=== PATIENT | male | born 1975 | race African-American/Black ===

== ENCOUNTER 2017-03-01 17:28 | Observation (INO) | payer SELFPAY ==
[2017-03-01] MEDS ORDERED: ASPIRIN 81 MG TABLET, CHEWABLE PO ONE ×2 (17:53→20:30)
--- NOTE | 2017-03-01 17:57 | ER Document Report ---
ED Medical Screen (RME) - General Chief Complaint: Chest Pain Stated Complaint: CHEST PAIN Time Seen by Provider: 03/01/17 17:53 Notes: Patient presents with left-sided chest pain that is been constant since awakening this morning. He has had some shortness of breath, some nausea and some sweating with the pain. He states he had a stress test one year ago that was normal. He has no other significant cardiac history. He does not take an aspirin a day. No history of DVTs or pulmonary embolisms. No cough cold or congestion. TRAVEL OUTSIDE OF THE [place] IN LAST 30 DAYS: No - Related Data Allergies/Adverse Reactions: No Known Allergies Allergy (Verified 03/01/17 17:49) Home Medications: Current Home Medications No Home Medications 03/01/17 [History] Past Medical History - Social History Frequency of alcohol use: Occasional Drug Abuse: None Renal/ Medical History: Denies: Hx Peritoneal Dialysis Physical Exam - Vital signs Vitals: Temp Pulse Resp Pulse Ox 99.7 F 87 18 98 03/01/17 17:38 03/01/17 17:38 03/01/17 17:38 03/01/17 17:38 Course - Vital Signs Vital signs: Temp Pulse Resp BP Pulse Ox 99.7 F 84 18 205/123 H 98 03/01/17 17:40 03/01/17 17:40 03/01/17 17:40 03/01/17 17:40 03/01/17 17:40
[2017-03-01 18:17] LABS: ABSOLUTE BASOPHILS # (AUTO) 0.1 10^3/uL (0.0-0.2); ABSOLUTE EOSINOPHILS # (AUTO) 0.6 10^3/uL (0.0-0.6); ABSOLUTE LYMPHOCYTES (AUTO) 2.3 10^3/uL (0.5-4.7); ABSOLUTE MONOCYTES (AUTO) 0.5 10^3/uL (0.1-1.4); BASOPHILS % (AUTO) 1.2 % (0-2); EOSINOPHILS % (AUTO) 7.1 % (0-6); HEMATOCRIT 42.6 % (37.9-51.0); HEMOGLOBIN 14.6 g/dL (13.5-17.0); HGB HCT DIFFERENCE 1.2; LYMPHOCYTES % (AUTO) 27.3 % (13-45); MEAN CORPUSCULAR HEMOGLOBIN 28.2 pg (27.0-33.4); MEAN CORPUSCULAR HGB CONC 34.3 g/dL (32.0-36.0); MEAN CORPUSCULAR VOLUME 82 fl (80-97); MONOCYTES % (AUTO) 5.9 % (3-13); RED BLOOD COUNT 5.17 10^6/uL (4.35-5.55); RED CELL DISTRIBUTION WIDTH 14.4 % (11.5-14.0); SEGMENTED NEUTROPHILS % (AUTO) 58.5 % (42-78); WHITE BLOOD COUNT 8.6 10^3/uL (4.0-10.5)
[2017-03-01 18:37] LABS: APPEARANCE,URINE CLEAR; BILIRUBIN,URINE NEGATIVE (NEGATIVE); GLUCOSE, URINE NEGATIVE (NEGATIVE); KETONES,URINE NEGATIVE (NEGATIVE); LEUKOCYTE ESTERASE,URINE NEGATIVE (NEGATIVE); NITRITE,URINE NEGATIVE (NEGATIVE); PROTEIN,URINE 30 mg/dL (NEGATIVE); URINE SPECIFIC GRAVITY 1.012; UROBILINOGEN,URINE NEGATIVE mg/dL (<2.0)
[2017-03-01 18:38] LABS: ALANINE AMINOTRANSFERASE 69 U/L (21-72); ALBUMIN 4.5 g/dL (3.5-5.0); ALKALINE PHOSPHATASE 127 U/L (38-126); ANION GAP 13 (5-19); ASPARTATE AMINO TRANSFERASE 40 U/L (17-59); BILIRUBIN,DIRECT 0.3 mg/dL (0.0-0.4); BILIRUBIN,TOTAL 0.5 mg/dL (0.2-1.3); BLOOD UREA NITROGEN 13 mg/dL (7-20); CALCIUM 9.6 mg/dL (8.4-10.2); CARBON DIOXIDE 23 mmol/L (22-30); CHLORIDE 103 mmol/L (98-107); CREATININE RESULT 0.88 mg/dL (0.52-1.25); GLUCOSE 143 mg/dL (75-110); POTASSIUM 4.1 mmol/L (3.6-5.0); SODIUM 138.8 mmol/L (137-145); TOTAL PROTEIN 7.7 g/dL (6.3-8.2)
[2017-03-01 18:48] LABS: URINE BARBITURATES SCREEN NEGATIVE; URINE METHADONE SCREEN NEGATIVE; URINE OPIATES LOW NEGATIVE; URINE PHENCYCLIDINE SCREEN NEGATIVE
--- NOTE | 2017-03-01 19:48 | RADIOLOGY REPORT (SQ) ---
EXAM DESCRIPTION: CHEST PA/LAT COMPLETED DATE/TIME: 03/01/2017 7:38 pm REASON FOR STUDY: cp COMPARISON: None. EXAM PARAMETERS: NUMBER OF VIEWS: two views TECHNIQUE: Digital Frontal and Lateral radiographic views of the chest acquired. RADIATION DOSE: NA LIMITATIONS: none FINDINGS: LUNGS AND PLEURA: No opacities, masses or pneumothorax. No pleural effusion. MEDIASTINUM AND HILAR STRUCTURES: No masses or contour abnormalities. HEART AND VASCULAR STRUCTURES: Heart normal size. No evidence for failure. BONES: No acute findings. HARDWARE: None in the chest. OTHER: No other significant finding. IMPRESSION: NO SIGNIFICANT RADIOGRAPHIC FINDING IN THE CHEST. TECHNICAL DOCUMENTATION: JOB ID: [id number] [employer]- All Rights Reserved
[2017-03-01] MEDS ORDERED: LISINOPRIL 10 MG TABLET PO ONE (20:29)
[2017-03-01] MEDS ORDERED: AMLODIPINE BESYLATE 5 MG TABLET PO ONE (20:29)
--- NOTE | 2017-03-01 20:34 | ER Document Report ---
ED Cardiac - General Chief Complaint: Chest Pain Stated Complaint: CHEST PAIN Time Seen by Provider: 03/01/17 17:53 Notes: Patient is a 41-year-old male who comes emergency department for chief complaint of chest pain, symptoms started this morning shortly after he got up, he states pain is intermittent, is over the left side of his chest. He states intermittently he has been short of breath and breaking out into a sweat. Patient states she has a history of high blood pressure, is supposed to lisinopril 20 mg and Norvasc 5 mg but he has been out for a month and has no primary care provider. He states he smokes marijuana occasionally, denies any other drugs. He denies personal or family history of cardiac disease, he had a negative stress test about 1 year ago, he denies tobacco, he denies any other medical history. He denies recent surgery or travel. He denies lower extremity swelling or current shortness of breath. He denies current chest pain. TRAVEL OUTSIDE OF THE [place] IN LAST 30 DAYS: No - Related Data Allergies/Adverse Reactions: No Known Allergies Allergy (Verified 03/01/17 17:49) Home Medications: Current Home Medications No Home Medications 03/01/17 [History] Past Medical History - General Information source: Patient - Social History Smoking Status: Never Smoker Frequency of alcohol use: Occasional Drug Abuse: Cocaine, Marijuana Lives with: Family Family History: Reviewed & Not Pertinent Patient has suicidal ideation: No Patient has homicidal ideation: No - Past Medical History Cardiac Medical History: Reports: Hx Hypertension Renal/ Medical History: Denies: Hx Peritoneal Dialysis Surgical Hx: Negative Review of Systems - Review of Systems Constitutional: No symptoms reported EENT: No symptoms reported Cardiovascular: See HPI Respiratory: See HPI Gastrointestinal: No symptoms reported Genitourinary: No symptoms reported Male Genitourinary: No symptoms reported Musculoskeletal: No symptoms reported Skin: No symptoms reported Hematologic/Lymphatic: No symptoms reported Neurological/Psychological: No symptoms reported Physical Exam - Vital signs Vitals: Temp Pulse Resp Pulse Ox 99.7 F 87 18 98 03/01/17 17:38 03/01/17 17:38 03/01/17 17:38 03/01/17 17:38 Interpretation: Normal - General General appearance: Appears well, Alert In distress: None - HEENT Head: Normocephalic, Atraumatic Eyes: Normal Conjunctiva: Normal Extraocular movements intact: Yes Eyelashes: Normal Pupils: PERRL - Respiratory Respiratory status: No respiratory distress Chest status: Nontender Breath sounds: Normal Chest palpation: Normal - Cardiovascular Rhythm: Regular Heart sounds: Normal auscultation Murmur: No - Abdominal Inspection: Normal Distension: No distension Bowel sounds: Normal Tenderness: Nontender Organomegaly: No organomegaly - Back Back: Normal, Nontender - Extremities General upper extremity: Normal inspection, Nontender, Normal color, Normal ROM , Normal temperature General lower extremity: Normal inspection, Nontender, Normal color, Normal ROM , Normal temperature, Normal weight bearing. No: Stephen's sign - Neurological Neuro grossly intact: Yes Cognition: Normal Orientation: AAOx4 Belkis Coma Scale Eye Opening: Spontaneous Belkis Coma Scale Verbal: Oriented Belkis Coma Scale Motor: Obeys Commands Belkis Coma Scale Total: 15 Speech: Normal Motor strength normal: LUE, RUE, LLE, RLE Sensory: Normal - Psychological Associated symptoms: Normal affect, Normal mood - Skin Skin Temperature: Warm Skin Moisture: Dry Skin Color: Normal Course - Re-evaluation Re-evalutation: Patient noted to be very hypertensive. He does not currently have chest pain, chest pain has been intermittent today. EKG with no ST segment changes or T- wave inversions in consecutive leads. Initial troponin indeterminate at 0.02, most likely from elevated blood pressure. Patient denying any recreational drugs. Patient was given home medications because of lack of chest pain. Drug screen shows cocaine. Patient admits to it when confronted with this, but states it was "about 5 days ago". He will not make eye contact when discussing this. Troponin cycled, shows little to no change. No significant elevation. Consulted with Dr. Zuniga, concern because of patient's hypertension, cocaine use , concerning symptoms. She recommends that despite patient being asymptomatic at this time he should still have an evaluation to rule out dissection. Recommend CT of the chest, abdomen/pelvis. Recommends admission to telemetry. CAT scan performed, shows incidental finding of pulmonary nodules, no dissection or acute abnormality. I did discuss this with patient and significant other in detail, I provided a report and gave it to his . Discussed with patient, he agrees with admission recommendation. Called Dr. Goodrich, he is busy with other patients. 03/02/17 Third troponin was obtained, shows some elevation but no concerning elevations. Consistent with cocaine and elevated blood pressure. Blood pressure has actually normalized now. Patient remains chest pain-free. 03/02/17 05:[address] Goodrich, will admit to telemetry observation. - Vital Signs Vital signs: Temp Pulse Resp BP Pulse Ox 98.5 F 84 23 H 140/89 H 93 03/02/17 01:47 03/01/17 17:40 03/02/17 05:31 03/02/17 05:31 03/02/17 05:31 - Laboratory Result Diagrams: 03/01/17 18:00 03/01/17 18:00 Laboratory results interpreted by me: 03/01/17 03/01/17 03/01/17 18:00 18:00 18:00 RDW 14.4 H Eosinophils % 7.1 H Glucose 143 H Alkaline Phosphatase 127 H Urine Protein 30 H Discharge - Discharge Clinical Impression: Uncontrolled hypertension, Cocaine abuse Chest pain Qualifiers: Chest pain type: unspecified Qualified Code(s): R07.9 - Chest pain, unspecified Admitting Provider: Hospitalist Unit Admitted: [facility]
--- NOTE | 2017-03-02 01:18 | RADIOLOGY REPORT (SQ) ---
EXAM DESCRIPTION: CTA CHEST COMPLETED DATE/TIME: 03/02/2017 12:13 am REASON FOR STUDY: chest pain, hypertension, eval aorta COMPARISON: None. TECHNIQUE: CT scan of the chest performed using helical scanning technique with dynamic intravenous contrast injection. Images reviewed with lung, soft tissue and bone windows. Reconstructed coronal and sagittal MPR images reviewed. Additional 3 dimensional post-processing performed to develop Maximal Intensity Projection images (SC P). All images stored on PACS. All CT scanners at this facility use dose modulation, iterative reconstruction, and/or weight based d osing when appropriate to reduce radiation dose to as low as reasonably achievable (ALARA). [facility]: Dose Right [facility]: CareDose [facility]: Dose Right [facility]: Teradose 4D [facility]: eSight CONTRAST TYPE AND DOSE: contrast/concentration: Isovue 370.00 mg/ml; Total Contrast Delivered: 100.0 ml; Total Saline Delivered: 58.0 ml RENAL FUNCTION: Creatinine 0.8. RADIATION DOSE: 1771 LIMITATIONS: None. FINDINGS: LUNGS AND PLEURA: 1.0 cm right upper lobar pulmonary nodule and 1.0 cm right middle lobar pulmonary nodule each with minimal spiculation. AORTA AND GREAT VESSELS: No aneurysm or dissection. Normal CTA of the aorta. HEART: No pericardial effusion. PULMONARY ARTERIES: No gross evidence of pulmonary emboli ; pulmonary arteries are not significantly enhanced limiting sensitivity. HILAR AND MEDIASTINAL STRUCTURES: Moderate mediastinal and right hilar lymphadenopathy includes a 2.5 x 1.0 cm left paracentral superior mediastinal lymph node, image 40 of series 3. HARDWARE: None in the chest. UPPER ABDOMEN: See separate report of the CT of the abdomen. THYROID AND OTHER SOFT TISSUES: No masses. No adenopathy. BONES: No acute or significant finding. 3D MIPS: Confirm above findings. OTHER: No other significant finding. IMPRESSION: 1. Two , 1.0 cm mildly spiculated right-sided pulmonary nodules and moderate mediastina l and right hilar lymphadenopathy. Infectious, inflammatory, and neoplastic processes are in the dif ferential diagnosis. Cannot exclude malignancy. CT surveillance recommended in 3 months or sooner a s clinically warranted. 2. Normal CTA appearance of the thoracic aorta. COMMENT: FLEISCHNER CRITERIA FOR FOLLOW-UP OF PULMONARY NODULES Incidentally detected new nodules in persons 35 or older. HIGH RISK: History of smoking or other known risk factors. >8mm multiple solid nodules: LOW RISK: CT 3-6 mo; then consider CT 18-24 mo. HIGH RISK: CT 3-6 mo; th en CT 18-24 mo. TECHNICAL DOCUMENTATION: JOB ID: [id number] Quality ID # [id number]: Final reports with documentation of one or more dose reduction techniques (e.g., Au tomated exposure control, adjustment of the mA and/or kV according to patient size, use of iterative reconstruction technique) 2010 [employer]- All Rights Reserved
--- NOTE | 2017-03-02 01:25 | RADIOLOGY REPORT (SQ) ---
EXAM DESCRIPTION: CTA PELVIS; CTA ABDOMEN COMPLETED DATE/TIME: 03/02/2017 12:13 am REASON FOR STUDY: chest pain, hypertension, eval aorta COMPARISON: None. TECHNIQUE: CT scan of the abdominal aorta extending to the iliac bifurcation performed with and with out intravenous contrast using helical scanning technique with dynamic intravenous contrast injection . Images reviewed with lung, soft tissue, and bone windows. Reconstructed coronal and sagittal MPR im ages reviewed. All images stored on PACS. Advanced 3D imaging as volume rendering, MIPS, SSD performed? yes All CT scanners at this facility use dose modulation, iterative reconstruction, and/or weight based d osing when appropriate to reduce radiation dose to as low as reasonably achievable (ALARA). [facility]: Dose Right [facility]: CareDose [facility]: Dose Right [facility]: Teradose 4D [facility]: [employer] CONTRAST TYPE AND DOSE: 100 cc Isovue 370- low osmolar. RENAL FUNCTION: None required. The patient is less than 50 years old. LIMITATIONS: None. FINDINGS: NON-CONTRASTED IMAGING: No significant renal or bladder calcifications. No other significa nt organ calcifications. POST-CONTRAST IMAGING: AORTA AND VESSELS: No aneurysm. No dissection. Renal arteries, SMA, celiac without stenosis. LUNG BASES: CT of the chest reported separately. LIVER: Moderate hepatic steatosis. SPLEEN: Normal size. No focal lesions. PANCREAS: No masses. No significant calcifications. No adjacent inflammation or peripancreatic fluid collections. Pancreatic duct not dilated. GALLBLADDER: No identified stones by CT criteria. No inflammatory changes to suggest cholecystitis. ADRENAL GLANDS: No significant masses or asymmetry. RIGHT KIDNEY AND URETER: No mass, calculi or urinary tract obstruction. Moderate malrotation. LEFT KIDNEY AND URETER: No mass, calculi or urinary tract obstruction. RETROPERITONEUM: No retroperitoneal adenopathy, hemorrhage or masses. BOWEL AND PERITONEAL CAVITY: No masses or inflammatory changes. No free fluid or peritoneal masses. Small to moderate colonic diverticulosis. APPENDIX: Normal. ABDOMINAL WALL: No masses. Small bilateral inguinal fat only herniation. Pelvis: Unremarkable. BONY STRUCTURES: Mild lumbar levo convexity. 3-D IMAGING: Confirms the above findings. OTHER: No other significant finding. IMPRESSION: 1. NO ABDOMINAL AORTIC ANEURYSM, DISSECTION OR SIGNIFICANT STENOSIS. Moderate hepatic steatosis. Colonic diverticulosis. 2. Abnormal CT of the chest reported separately. TECHNICAL DOCUMENTATION: JOB ID: [id number] Quality ID # [id number]: Final reports with documentation of one or more dose reduction techniques (e.g., Au tomated exposure control, adjustment of the mA and/or kV according to patient size, use of iterative reconstruction technique) 2010 [employer]- All Rights Reserved
[2017-03-02] MEDS ORDERED: PROMETHAZINE HCL 25 MG TABLET PO PRN (07:36)
[2017-03-02] MEDS ORDERED: ENALAPRILAT DIHYDRATE INJ/PF 1.25 MG/1 ML SDV IV PRN (07:38)
[2017-03-02] MEDS ORDERED: MAG HYDROX/AL HYDROX/SIMETH SUSP 30 ML UDCUP PO PRN (07:42)
[2017-03-02] MEDS ORDERED: METOPROLOL TARTRATE PF/INJ 5 MG/5 ML SDV IV PRN (07:48)
--- NOTE | 2017-03-02 08:05 | PDOC H&P ---
History of Present Illness Admission Date/PCP: 03/02/17 06:01 Primary care provider none Patient complains of: Chest pain History of Present Illness: HAMLET TRIVEDI is a 41 year old -[place] male with known underlying hypertension, but off all medications for at least a month who presents to the emergency room for evaluation of intermittent combination pressure and sharp left-sided chest pain that began in the morning of the eighth shortly after he awoke. Occasional shortness of breath and occasional diaphoresis. Nothing in particular made the chest pain worse. He has had prior such symptoms. Negative exercise treadmill study one year ago. No history of myocardial infarction, pulmonary embolus, DVT, atrial fibrillation , or atrial flutter. Blood pressure was noted to be quite elevated upon arrival but has responded nicely to treatment given in the emergency room. Prior to running out of medication, he was taking lisinopril 20 mg p.o. twice daily and Norvasc 5 mg daily. Does admit to using cocaine, stating last used 5 days ago. Patient has been discussed with emergency room nurse practitioner who evaluated the patient. Currently resting quietly, chest pain-free. Dictation via voice recognition software. Laboratory results are listed in [employer] and are reviewed. X-ray summary results are listed below, with full report(s) reviewed. . EKG reviewed. No prior EKG available for comparison. Social history/personal habits: Single. 3 children. Is a cook at [employer]. Pack of cigarettes will last him 2-3 weeks. Occasional alcohol, perhaps twice a week. Cocaine and marijuana. No known drug allergies. Home medications currently none. See history and present illness. REVIEW OF SYSTEMS: Constitutional: No fever or chills. Eyes: Wears glasses. ENT: No swallowing problems or complaints. Denies hearing loss. Pulmonary: No current complaints. Cardiovascular: See history and present illness. Gastrointestinal: No current complaints, including nausea or vomiting. Skin: No current complaints, including rashes. Hematologic: Denies easy bruising. Neurologic: No current complaints, including numbness or tingling. Musculoskeletal: No current or chronic joint complaints, such as arthritis. Psychiatric: Mild anxiety and depression. Denies suicidal or homicidal ideation. Endocrine: No current complaints, including polyuria. Genitourinary: No current complaints, including dysuria. PHYSICAL EXAMINATION: 6 feet 2 inches tall. 114.4 kg. Blood pressure 151/103. Pulse 81 and regular. 94% saturation on room air. Respirations are 20 and unlabored. Temperature 98.5. Obese but also somewhat stocky otherwise well-developed -[place] male appearing perhaps a bit older than his stated age. Initially asleep, but awakens easily. Alert and cooperative. No obvious distress. Skin is warm and dry. No grossly obvious evidence of rash in areas of skin examined. No subcutaneous nodules palpated. ENT: Hearing grossly normal to normal conversation. Tongue midline on protrusion pink and slightly tacky. Eyes: No scleral icterus. Pupils equal and reactive to light at 4 mm. Moodys conjunctivae. Neck is supple and nontender to gentle active range of motion and palpation. Midline trachea. No palpable thyroid nodule mass enlargement or tenderness. Lymphatic: No palpable cervical or clavicular nodes. Neck and lymphatic exams limited by patient body habitus. Psychiatric: Reasonable insight into acute and chronic medical issues. Oriented to time location and why here. Lungs: Auscultation reveals clear and equal breath sounds bilaterally. No use of accessory respiratory muscles. Cardiovascular: Heart regular rate and rhythm, without gallop murmur or rub. No carotid or abdominal aortic bruits. No ankle or pedal edema. Palpable dorsalis pedis pulses. Abdomen:soft somewhat obese nontender with positive bowel sounds. Unable to adequately evaluate abdomen for masses or organomegaly due to body habitus. Compression of neither his upper abdomen nor sternum reproduces his previously noted chest discomfort. Extremities: Feet are warm and dry. No calf tenderness to compression. No grossly obvious visual evidence of calf swelling. Gentle manipulation of lower extremities fails to reveal any obvious evidence of injury or instability to knees hips or ankles. Neurologic: Moves upper extremities grossly normally. Patellar reflexes absent. Absent Babinski. Light touch is intact at feet. Dorsiflexion and plantarflexion of feet 5 / 5 and symmetric. Past Medical History Cardiac Medical History: Reports: Hypertension Denies: Atrial Fibrillation, Congestive Heart Failure, Coronary Artery Disease, DVT, Myocardial Infarction, Hyperlipidema, Pulmonary Embolism Pulmonary Medical History: Denies: Asthma, Chronic Obstructive Pulmonary Disease (COPD), Sleep Apnea EENT Medical History: Reports: Eyes - Reading glasses Denies: Ears, Throat Neurological Medical History: Denies: Hemorrhagic CVA, Ischemic CVA, Seizures Endocrine Medical History: Denies: Diabetes Mellitus Type 1, Diabetes Mellitus Type 2, Hyperthyroidism, Hypothyroidism Renal/ Medical History: Reports: None GI Medical History: Denies: Cirrhosis, Gastroesophageal Reflux Disease, Hepatitis, Peptic Ulcer Disease Musculoskeltal Medical History: Denies: Arthritis Skin Medical History: Reports: None Psychiatric Medical History: Reports: Depression, General Anxiety Disorder, Substance Abuse, Tobacco Dependency Denies: Alcohol Dependency Hematology: Reports: None Infectious Medical History: Denies: Hepatitis B, Hepatitis C Past Surgical History Past Surgical History: Reports: None Social History Information Source: Patient, Emergency Med Personnel, [facility] Records Lives with: Family Smoking Status: Current Every Day Smoker Frequency of Alcohol Use: Occasional Drugs: Cocaine, Marijuana - Advance Directive Resuscitation Status: Full Code Surrogate healthcare decision maker:: Mother Reyna Garces Family History Family History: Reviewed & Not Pertinent Parental Family History Reviewed: Yes - Father is hypertensive; mother diabetic Children Family History Reviewed: Yes - Healthy Sibling(s) Family History Reviewed.: Yes - healthy Medication/Allergy Home Medications: Amlodipine Besylate [Norvasc 5 mg Tablet] 5 mg PO DAILY 03/02/17 Lisinopril [Zestril] 20 mg PO BID 03/02/17 Allergies/Adverse Reactions: No Known Allergies Allergy (Verified 03/01/17 17:49) Physical Exam Vital Signs: Temp Pulse Resp BP Pulse Ox 98.5 F 79 18 163/104 H 98 03/02/17 06:59 03/02/17 06:59 03/02/17 06:59 03/02/17 06:59 03/02/17 06:59 Results Impressions: Chest X-Ray 03/01/17 17:53 IMPRESSION: NO SIGNIFICANT RADIOGRAPHIC FINDING IN THE CHEST. Chest/Abdomen CTA 03/01/17 23:06 IMPRESSION: 1. NO ABDOMINAL AORTIC ANEURYSM, DISSECTION OR SIGNIFICANT STENOSIS. Moderate hepatic steatosis. Colonic diverticulosis. 2. Abnormal CT of the chest reported separately. Pelvis CTA 03/01/17 23:06 IMPRESSION: 1. NO ABDOMINAL AORTIC ANEURYSM, DISSECTION OR SIGNIFICANT STENOSIS. Moderate hepatic steatosis. Colonic diverticulosis. 2. Abnormal CT of the chest reported separately. Assessment & Plan - Diagnosis (1) Abnormal CT scan, chest Is this a current diagnosis for this admission?: YesPlan: CT results discussed in layperson's terms with patient. He understands the worst cause for the findings would be some type of cancer. He understands that timely follow-up is critical. CT results discussed with day hospitalist. (2) Tobacco dependency Is this a current diagnosis for this admission?: Yes (3) Hypertensive urgency Is this a current diagnosis for this admission?: YesPlan: Gradual blood pressure control. Vital sign parameters in chart. Resume home medications as appropriate once these have been determined and reviewed. (4) Chest pain Qualifiers: Chest pain type: unspecified Qualified Code(s): R07.9 - Chest pain, unspecified Is this a current diagnosis for this admission?: YesPlan: Patient will be placed in observation bed under chest pain protocol. Patient understands to notify staff should chest pain recur. Serial troponin . Repeat EKG. lipid panel. I have strongly encouraged patient to be careful getting out of bed without notifying staff, to avoid a fall with injury. Knee high SCDs for DVT prophylaxis, along with subcu Lovenox. Impression and plans were discussed with patient, who concurs . Time spent in evaluation and management of patient: 68 minutes. (5) Cocaine abuse Is this a current diagnosis for this admission?: Yes
[2017-03-02] MEDS: ASPIRIN 81 MG TABLET, ENT COATED PO SCH (09:21)
[2017-03-02] MEDS: LISINOPRIL 10 MG TABLET PO SCH ×2 (09:21→21:29)
[2017-03-02] MEDS: DOCUSATE SODIUM 100 MG CAPSULE PO SCH ×2 (09:24→17:26)
[2017-03-02 09:47] LABS: CHOLESTEROL 210.31 mg/dL (0-200); Direct HDL 54 mg/dL (>40); TRIGLYCERIDES 173 mg/dL (<150)
[2017-03-02 09:58] LABS: DIRECT LDL 126 mg/dL (<100)
[2017-03-02] MEDS ORDERED: AMLODIPINE BESYLATE 5 MG TABLET PO SCH (10:00)
[2017-03-02] MEDS ORDERED: (PENDING PHARMACY ID) (Lisinopril [Zestril] 20 MG) PO SCH (10:00)
[2017-03-02] MEDS ORDERED: ENOXAPARIN SODIUM INJ 40 MG/0.4 ML DISP.SYRIN SUBCUT SCH (10:00)
[2017-03-02 10:02] LABS: VLDL CHOLESTEROL 34.6 mg/dL (10-31)
--- NOTE | 2017-03-02 10:50 | EKG REPORT ---
SEVERITY:- BORDERLINE ECG - SINUS RHYTHM BORDERLINE R WAVE PROGRESSION, ANTERIOR LEADS BORDERLINE T ABNORMALITIES, INFERIOR LEADS : Confirmed by: Timoteo Auguste 02-Mar-2017 10:49:55
--- NOTE | 2017-03-02 10:50 | EKG REPORT ---
SEVERITY:- ABNORMAL ECG - SINUS RHYTHM PROBABLE LEFT ATRIAL ABNORMALITY ST ELEVATION SUGGESTS PERICARDITIS : Confirmed by: Timoteo Auguste 02-Mar-2017 10:49:46
--- NOTE | 2017-03-02 14:23 | Progress Note ---
Provider Note Provider Note: patient was admitted this morning for substernal chest pain that has resolved, no prior hx of CAD and had negative stress test at [facility] 2 years ago. He's been incarcerated for the last 2 years where they gave him his BP meds and released just over one month ago with a month supply of meds and instructions to find a new PCP, which he has failed to do and therefore ran out of his meds 5d ago. he also admits to cocaine use, he smokes it. his CT chest was negative for dissection and aneurysm but did shows one Rt upper and one lower spiculated pulm nodules of 1cm each. his ecg and enzymes have been negative x3. he doesn't know his parents or their medical history. he denies tob use. he tells a good story for coronary disease and has enough risk factors that he agreed to stress test. discussed with dr martinez and agrees with stress testing.
[2017-03-03] MEDS: ACETAMINOPHEN 325 MG TABLET PO PRN ×2 (05:35→14:14)
[2017-03-03 07:16] LABS: PARTIAL THROMBOPLASTIN TIME 28.2 SEC (23.5-35.8)
[2017-03-03] MEDS ORDERED: ATORVASTATIN CALCIUM 80 MG TABLET PO SCH (07:30)
[2017-03-03] MEDS ORDERED: ENOXAPARIN SODIUM INJ 120 MG/0.8 ML DISP.SYRIN SUBCUT ONE (08:00)
[2017-03-03] MEDS: ATORVASTATIN CALCIUM 80 MG TABLET PO SCH (10:51)
[2017-03-03] MEDS: DOCUSATE SODIUM 100 MG CAPSULE PO SCH ×2 (10:51→17:43)
[2017-03-03] MEDS: METOPROLOL TARTRATE 25 MG TABLET PO SCH ×2 (10:52→21:26)
[2017-03-03] MEDS: LISINOPRIL 10 MG TABLET PO SCH ×2 (10:53→21:26)
[2017-03-03] MEDS: ASPIRIN 81 MG TABLET, ENT COATED PO SCH (10:53)
[2017-03-03] MEDS: NITROGLYCERIN 2.5 MG (0.1 MG/HR) PATCH.TD24 TD SCH (10:54)
--- NOTE | 2017-03-03 13:09 | EKG REPORT ---
SEVERITY:- BORDERLINE ECG - SINUS RHYTHM BORDERLINE R WAVE PROGRESSION, ANTERIOR LEADS ST ELEV, PROBABLE NORMAL EARLY REPOL PATTERN : Confirmed by: Timoteo Auguste 03-Mar-2017 13:09:00
--- NOTE | 2017-03-03 13:42 | XCELERA REPORT ---
[address] [address] Transthoracic Echocardiogram Report Name: HAMLET TRIVEDI Age: 41 yrs Gender: Male : 1975 Patient Status: Inpatient Patient Location: 3N\S\301\S\A Study Date: 03/03/2017 10:59 AM Height: 74 in Weight: 254 lb BSA: 2.4 m2 Procedure: A two-dimensional transthoracic echocardiogram with color flow and Doppler was performed. Images were not obtained from all of the standard acoustic windows due to the limited scope of the study. Reason For Study: NSTEMI History: NSTEMI. Ordering Physician: ARABELLA UGARTE Performed By: Marlene Douglas Interpretation Summary The left ventricle is normal in size. LV EF is > than 65%.% Left ventricular systolic function is normal. Doppler measurements suggest normal left ventricular diastolic function The left ventricular wall motion is normal. There is no thrombus. The right ventricle is normal size. There is mild right ventricular hypertrophy. The right ventricular systolic function is normal. The left atrial size is normal. There is no evidence of mitral valve prolapse. There is no mitral valve stenosis. There is a trace amount of mitral regurgitation There is no aortic valve stenosis There is no LVOT obstruction. No aortic regurgitation is present. There is no tricuspid stenosis. There is a trace amount of tricuspid regurgitation Unable to calculate RVSP due to insufficient TR jet. There is no pericardial effusion. MMode/2D Measurements \T\ Calculations RVDd: 2.4 cm LVIDd: 4.4 cm FS: 38.6 % Ao root diam: 3.1 cm IVSd: 1.7 cm LVIDs: 2.7 cm EDV(Teich): 89.6 ml LVPWd: 1.7 cm ESV(Teich): 27.7 ml Ao root area: 7.3 cm2 EF(Teich): 69.1 % LVOT diam: 2.0 cm LVOT area: 3.1 cm2 Doppler Measurements \T\ Calculations MV E max christiana: MV dec slope: Ao V2 max: LV V1 max P.2 cm/sec 230.4 cm/sec2 132.9 cm/sec 4.6 mmHg MV A max christiana: MV dec time: Ao max PG: LV V1 max: 61.4 cm/sec 0.26 sec 7.1 mmHg 107.1 cm/sec MV E/A: 0.98 LUIS(V,D): 2.5 cm2 PA V2 max: PI end-d christiana: 129.4 cm/sec 95.4 cm/sec PA max P.7 mmHg Left Ventricle The left ventricle is normal in size. Moderate to severe conceentric LVH. LV EF is > than 65%.%. Left ventricular systolic function is normal. Doppler measurements suggest normal left ventricular diastolic function. The left ventricular wall motion is normal. There is no thrombus. Right Ventricle The right ventricle is normal size. There is mild right ventricular hypertrophy. The right ventricular systolic function is normal. Atria The right atrium is normal. The left atrial size is normal. Mitral Valve There is no evidence of mitral valve prolapse. There is no vegetation seen on the mitral valve. There is no mitral valve stenosis. There is a trace amount of mitral regurgitation. Aortic Valve The aortic valve is trileaflet. The aortic valve opens well. There is no aortic valvular vegetation. There is no aortic valve stenosis. There is no LVOT obstruction. No aortic regurgitation is present. Tricuspid Valve There is no tricuspid stenosis. There is a trace amount of tricuspid regurgitation. Unable to calculate RVSP due to insufficient TR jet. Pulmonic Valve There is no pulmonic valvular stenosis. There is a trace amount of pulmonic regurgitation. Great Vessels The aortic root is normal size. Effusions There is no pericardial effusion. : ARABELLA UGARTE > Arabella Ugarte
[2017-03-03] MEDS ORDERED: ACETAMINOPHEN 325 MG TABLET PO PRN (15:11)
[2017-03-03] MEDS ORDERED: MAG HYDROX/AL HYDROX/SIMETH SUSP 30 ML UDCUP PO PRN (15:11)
[2017-03-03] MEDS ORDERED: PROMETHAZINE HCL 25 MG TABLET PO PRN (15:12)
[2017-03-03] MEDS ORDERED: DEXTROSE 40% GEL 15 GM TUBE PO PRN ×2 (17:56)
[2017-03-03] MEDS ORDERED: GLUCAGON,HUMAN RECOMB 1 MG INJ SUBCUT PRN (17:56)
[2017-03-03] MEDS ORDERED: DEXTROSE 50%-WATER 25 GM/50 ML DISP.SYRIN IV PRN ×2 (17:56)
--- NOTE | 2017-03-03 18:19 | PDOC PROGRESS REPORT ---
Subjective Progress Note for:: 03/03/17 Subjective:: reason for visit: f/u chest pain, HTN, hospital course: per dr jung H&P - "HAMLET TRIVEDI is a 41 year old -[place] male with known underlying hypertension, but off all medications for at least a month who presents to the emergency room for evaluation of intermittent combination pressure and sharp left-sided chest pain that began in the morning of the eighth shortly after he awoke. Occasional shortness of breath and occasional diaphoresis. Nothing in particular made the chest pain worse. He has had prior such symptoms. Negative exercise treadmill study one year ago. No history of myocardial infarction, pulmonary embolus, DVT, atrial fibrillation, or atrial flutter. Blood pressure was noted to be quite elevated upon arrival but has responded nicely to treatment given in the emergency room. Prior to running out of medication, he was taking lisinopril 20 mg p.o. twice daily and Norvasc 5 mg daily. Does admit to using cocaine, stating last used 5 days ago." patient was admitted for substernal chest pain that has resolved, no prior hx of CAD and had negative stress test at [place] 2 years ago. He's been incarcerated for the last 2 years where they gave him his BP meds and released just over one month ago with one month supply of meds and instructions to find a new PCP, which he has failed to do and therefore ran out of his meds 5d ago. he also admits to cocaine use, he smokes it. initial evaluation shows non specific repolarization abnl's of T waves but nothing to suggest acute ischemia and his enzymes were equivocal so we set him up for 2d cardiolyte stress test due to his size. After resting images completed his troponins trended up and out of the normal range so dr martinez consulted, part 2 stopped, echo performed which just shows LVH (see his dictation for details). He was placed on full dose lovenox, high dose statin, beta alana since cocaine use is now about 1 week out, topical NTG and continued ASA. Plan now is to further trend his enzymes and if down then complete stress portion of the test. ROS: he remains chest pain free, no palpitations, CEJA, dizziness, n/t, n/v/d, abdominal pain, heartburn, arm/jaw pain. all systems reviewed, see above, remaining systems negative. Physical Exam Vital Signs: Temp Pulse Resp BP Pulse Ox 99.1 F 81 19 137/100 H 98 03/03/17 16:07 03/03/17 16:07 03/03/17 16:07 03/03/17 16:07 03/03/17 16:07 Intake & Output 03/02/17 03/03/17 03/04/17 06:59 06:59 06:59 Intake Total 2093 Output Total 1725 Balance 368 Weight 115.3 kg 115.3 kg General appearance: PRESENT: no acute distress, obese, well-developed, well- nourished - large stature Head exam: PRESENT: atraumatic, normocephalic Eye exam: PRESENT: EOMI. ABSENT: conjunctival injection, scleral icterus Neck exam: PRESENT: full ROM. ABSENT: JVD, lymphadenopathy, tenderness Respiratory exam: PRESENT: clear to auscultation zane. ABSENT: accessory muscle use Cardiovascular exam: PRESENT: RRR. ABSENT: systolic murmur Pulses: PRESENT: normal radial pulses, normal dorsalis pedis pul Vascular exam: PRESENT: normal capillary refill GI/Abdominal exam: PRESENT: normal bowel sounds, soft. ABSENT: tenderness Extremities exam: ABSENT: calf tenderness, clubbing, pedal edema Musculoskeletal exam: PRESENT: ambulatory, full ROM Neurological exam: PRESENT: alert, awake, oriented to person, oriented to place , oriented to time, oriented to situation Psychiatric exam: PRESENT: flat affect, normal mood Skin exam: PRESENT: dry, warm Results Laboratory Results: 03/02/17 03/03/17 03/03/17 08:59 04:01 06:54 Troponin I 0.049 0.383 0.588 03/03/17 15:55 Troponin I 0.280 EKG Comments: diffuse T wave/J point elevation Assessment & Plan - Diagnosis (1) Chest pain Qualifiers: Chest pain type: unspecified Qualified Code(s): R07.9 - Chest pain, unspecified Is this a current diagnosis for this admission?: YesPlan: resolved; unclear etiology; workup underway; continue empiric treatment (2) Elevated troponin I level Is this a current diagnosis for this admission?: YesPlan: unclear if troponin leak due to cocaine use with LVH or indicative of occult coronary disease; workup underway, continue to trend (3) Abnormal CT scan, chest Is this a current diagnosis for this admission?: YesPlan: will need f/u ct scan and further evaluation of his pulmonary nodules as outpt; unrelated to his presentation, incidental finding (4) Cocaine abuse Is this a current diagnosis for this admission?: YesPlan: counseled regarding use, not interested (5) Uncontrolled hypertension Is this a current diagnosis for this admission?: YesPlan: possibly source for his chest pain and related to his cocaine use and medical noncompliance; much better control with current regimen (6) Hyperlipidemia Qualifiers: Hyperlipidemia type: unspecified Qualified Code(s): E78.5 - Hyperlipidemia, unspecified Is this a current diagnosis for this admission?: YesPlan: statin - Time Time Spent with patient: 35 or more minutes - Plan Summary Plan Summary: discussed at length with dr maritnez
[2017-03-03] MEDS: ENOXAPARIN SODIUM INJ 120 MG/0.8 ML DISP.SYRIN SUBCUT SCH (21:26)
--- NOTE | 2017-03-03 22:27 | CONSULTATION REPORT E ---
Consultation Report NAME: HAMLET TRIVEDI : 1975 AGE: 41Y DATE: 03/03/2017 301 A TO: DESMOND UGARTE M.D. FROM: MARTY HOPSON M.D. Requesting Physician REASON FOR CONSULTATION: Patient with atypical chest pain and abnormal Troponin I consistent with non-ST elevation KS. HISTORY OF PRESENT ILLNESS: Note that the patient was seen at 11:30 a.m. on 03/03/2017. The patient actually is a 41-year-old -Citizen Of [place] male with a history of hypertension and polysubstance abuse, who ran out of his blood pressure medications about a month ago. Since then he has been having intermittent episodes of left-sided chest pressure and sharp left-sided pain which lasted for an hour. It is not brought on or increased by exertion. Although it is sharp, it is not pleuritic in nature. Occasionally he has diaphoresis and short episodes of shortness of breath. He denies any palpitations, PND, orthopnea, or leg edema. In view of the sharp pains, the patient had an abdominal CT angiogram which did not show abdominal aortic aneurysm. He also had a pulmonary CT angiogram which showed no pulmonary emboli or dissection but there were two nodules on the right side which were spiculated and also moderate mediastinal and right hilar lymphadenopathy. His EKG showed minor nonspecific changes in the inferior leads but no major acute changes. Also on admission in the emergency room, his blood pressure was found to be high and the initial reading was 205/123. The patient's blood pressure was gradually brought down. The patient had a troponin I which also indeterminate, was slightly trending upwards, but the patient since admission to the hospital had control of his blood pressure although not optimally controlled, has not recurred. The patient was scheduled for a stress test on 03/02/2017 but in view of the patient's upper trending of the troponin I even though it was indeterminate, only resting images were done on 03/02/2017 and the stress portion was scheduled to be done on 03/03/2017, but, the subsequent troponin I came back elevated at 0.383 and 0.588. Hence, the stress test was canceled and the patient was placed, as per my recommendation, on treatment for non-ST elevation KS although the patient had no further chest pains. The patient's echocardiogram showed severe concentric LVH, left ventricular hypertrophy, with a normal LV ejection fraction, normal LV size, no other major valvular pathology was noted and, hence, Cardiology was consulted for this reason. Due to the patient having no major EKG changes and the having no chest pain or discomfort and with the blood pressure fairly well controlled, although not optimally, it was decided to further trend the patient's cardiac enzymes with a followup troponin I and EKG prior to doing a stress test. The patient denies any palpitations, PND, orthopnea, or dyspnea on exertion. There is no dizziness, near syncope, or syncope. The patient admits to having taken cocaine about 5 days prior to his admission. PAST MEDICAL HISTORY: Hypertension. The patient was taking lisinopril 20 mg p.o. b.i.d. and Norvasc 5 mg p.o. daily but which he ran out. There is no prior history of angina, myocardial infarction, or documented coronary artery disease. He had a stress test about a year ago which the patient states was negative. There is no history of diabetes mellitus or thyroid disease. There is no history of chronic kidney disease. There is no history of TIA or CVA. No history of anxiety or depression. There is no history of asthma, COPD, wheezing, cough, sputum production, or pulmonary embolism. PAST SURGICAL HISTORY: Negative. He has had no surgeries. FAMILY HISTORY: Both his mother and father had hypertension. ALLERGIES: The patient has no known allergies. SOCIAL HISTORY: The patient uses marijuana and cocaine. He also is a daily smoker. He occasionally uses alcohol. REVIEW OF SYSTEMS: CONSTITUTIONAL: Denies any fever, chills, or rigors. HEAD: No history of headaches although today he complained of headaches. They are not migrainous. There is no history of dizziness. EYES: No history of amblyopia of diplopia. No history of amaurosis fugax. EARS: No history of tinnitus. No history of hearing loss. No history of recurrent ear infections. NOSE: No history of hay fever. No history of nosebleeds. No history of nasal polyps. MOUTH: No history of altered taste sensation. No history of ulcers in the mouth. No bleeding from the gums. THROAT: No history of odynophagia or dysphagia. No history of recurrent sore throats. SKIN: No history of pruritus. No history of yellowish discoloration of the skin. No history of psoriasis. No history of skin cancer. NECK: No history of painful or painless neck swelling. No history of lymphadenopathy. No history of goiter. LUNGS: No history of asthma or COPD. No history of sleep apnea. No history of pulmonary embolism. No history of pleuritic chest pain. There is no history of hemoptysis. There is no recent wheezing, cough, or symptoms suggestive of pneumonia or bronchitis. CARDIAC: History of hypertension as mentioned earlier but ran out of his medications. No prior history of congestive heart failure. No prior history of arrhythmias. No history of PND, orthopnea, leg edema, or syncope. Atypical chest pain since he stopped his medications as mentioned earlier and although with no major EKG changes, the patient has had elevated troponin I suggestive of non-ST elevation myocardial infarction. The patient since admission has not had any chest pain. GI: No history of GI bleed. No history of GERD. No history of jaundice. No history of decreased appetite. No history of cirrhosis. No history of altered bowel movements. MUSCULOSKELETAL: No history of arthritis or collagen vascular disease. ENDOCRINE: No history of diabetes mellitus. No history of thyroid disease. No history of polydipsia or polyuria. No history of heat or cold intolerance. CENTRAL NERVOUS SYSTEM: No history of TIA or CVA. No history of seizures, headaches or, migraines. RENAL: No history of chronic kidney disease. No symptoms of UTI. No history of hematuria, pyuria, or dysuria. PSYCHIATRIC: No history of anxiety or depression. No history of suicidal ideation. No history of homicidal ideation. VASCULAR: No history of calf or buttock claudication. No history of DVT. HEMATOLOGIC: No history of bleeding diathesis. No history of anemia. No history of bleeding dyscrasias. MEDICATIONS: 1. Acetaminophen 650 mg p.o. q. 4 hours. 2. Aspirin 81 mg p.o. daily. 3. Colace 100 mg p.o. b.i.d. 4. Metoprolol 5 mg IV q. 6 hours p.r.n. 5. Phenergan 12.5 mg p.o. q. 6 hours p.r.n. PHYSICAL EXAMINATION: GENERAL: At present the patient is in no acute distress. He is slightly/mildly obese but well groomed and in no acute distress. VITAL SIGNS: His temperature is 99.1 degrees Fahrenheit, pulse is 86 beats per minute, blood pressure is 139/93, respirations are 20 per minute, 02 sats are 98% on room air. HEENT: Head: Atraumatic, normocephalic. Eyes: Pupils are equal, round, regular, reactive to light and accommodation. Extraocular movements are normal. There is no conjunctival pallor. There is no scleral icterus. Ears: Tympanic membranes are intact. External auditory canals are clear. Nose: There is no deviated nasal septum. There is inflammation of the nasal mucous membranes. Mouth: There are no ulcers in the mouth. There is no bleeding from the gums. Mucous membranes of the mouth and tongue are moist. Throat: There is no redness of the oropharynx. There are no exudates on the throat. SKIN: Without any skin lesions or ecchymosis or petechiae. There is no skin rashes. NECK: Supple. There is no JVD. Carotids are equal. There is no bruit. There is no lymphadenopathy. There is no goiter. Trachea is central. LUNGS: Clear to auscultation and percussion. There is no chest wall tenderness. HEART: S1 and S2 are heard. There is no S3 gallop. There is no S4 gallop. There is a systolic murmur in the left sternal border at the apex. There is no rub. There is no radiation of the murmur. ABDOMEN: Soft, nontender. There is no hepatosplenomegaly. Bowel sounds are well heard. There are no tender areas or masses. EXTREMITIES: Femorals are slightly diminished. Leg pulses are well felt. There is no pedal edema. There is no DVT or cellulitis. There is no calf tenderness. There is no cyanosis or clubbing. Capillary refill is normal. There is no calf tenderness. CENTRAL NERVOUS SYSTEM: The patient is conscious, awake, alert, oriented x3 with no focal deficits. PSYCHIATRIC: The patient's judgment and insight are intact. His affect is normal. LABORATORY DATA: As mentioned earlier, his chest CTA showed pulmonary nodules and moderate mediastinal and right hilar lymphadenopathy. Infectious process verses malignancy. His abdominal CT showed no abdominal aortic aneurysm or significant stenosis. There is moderate hepatic steatosis, chronic diverticulosis. Also the chest CT showed no dissection and there was no pulmonary emboli. The patient's chest x-ray showed no significant radiographic findings of the chest. The patient's initial EKG showed sinus rhythm with nonspecific T changes in the inferior leads. His subsequently EKG done yesterday showed sinus rhythm, probable left atrial abnormality, ST elevation suggestive of early repolarization changes with some minor nonspecific T changes in the inferior leads. His subsequent EKG showed no major changes. The patient's echocardiogram showed severe concentric LVH, normal ventricular wall motion, and ejection fraction of 65%. There is no significant stenotic or regurgitant lesions, there is no pericardial effusion. The patient's laboratory data showed the initial troponin I which was 0.022, beverly up to 0.24, then 0.042, 0.049, and subsequently early this morning showed 0.383 and 0.588. The patient ProTime is 13.0, INR is 0.92, PTT is 28.2. The patient's white count is 8,600, the patient's hemoglobin is 14.6, hematocrit is 42.6, platelet count is 204,000. The patient triglycerides are 173, his total cholesterol is 210, his LDL cholesterol is 126, and his HDL cholesterol is 54. The patient's sodium is 138.8, potassium 4.1, chloride 103, CO2 is 23. The patient's BUN is 13, creatinine is 0.88, GFR is greater than 60, glucose is 143. Note that this is a radon sample. Calcium is 9.6. Liver function tests are normal except for a slightly elevated alkaline phosphatase of 127. His total protein is 7.7, albumin is 4.5. IMPRESSION: 1. Non-ST elevation KS. 2. Atypical chest pain. 3. Accelerated hypertension, now blood pressure much better controlled but still not optimally controlled. 4. Lung nodule. Needs workup later. 5. History of cocaine and polysubstance abuse and history of tobacco and alcohol abuse. 6. Hyperlipidemia. RECOMMENDATIONS: Would recommend since the patient is asymptomatic and there are no major EKG changes, would further trend enzymes down. Note that the patient on 03/02 had a resting Cardiolite imaging. If the enzymes trend down, will see when we can do the Lexiscan Cardiolite Stress Test. If the patient has increase in his troponin I or EKG changes or chest pain, then would transfer the patient [facility] for cardiac [facility]ization. Note, would continue the patient's aspirin. Will place the patient on statin. Will also continue the patient's nitrates and also start the patient on metoprolol 12.5 mg p.o. daily since it is almost 6 days since the last cocaine use. Also would recommend that the patient be started on full dose Lovenox 1 mg/kg subcutaneously q. 12 hours. Note, this has been discussed with the patient and also with the hospitalist taking care of the patient. The patient is agreeable to this approach. Also the echo findings and all the other chest x-ray, EKG, and CT scan findings were discussed with the patient. Note, 40 minutes was spent on this patient with more than 50 percent of the time spent on direct patient care. His medications have been reviewed and adjusted and recommendations made. Coordination of care done with other caregiving providers on the case. Will recheck the patient's troponin I serially and also check the patient's EKG in the morning prior to deciding whether to do the Lexiscan Stress Test on 03/04/2017 or whether to transfer patient to [facility]. DISPOSITION: The patient is a FULL CODE. His mother is his surrogate healthcare decision maker. DICTATING PHYSICIAN: DESMOND UGARTE M.D. [id number] PHY#: [id number] ID: [id number] JOB#: [id number] ACCT: [id number] cc:DESMOND UGARTE M.D. >
[2017-03-04 08:51] LABS: HEMATOCRIT 44.1 % (37.9-51.0); HGB HCT DIFFERENCE 0.9; MEAN CORPUSCULAR HEMOGLOBIN 27.9 pg (27.0-33.4); MEAN CORPUSCULAR HGB CONC 34.1 g/dL (32.0-36.0); MEAN CORPUSCULAR VOLUME 82 fl (80-97); RED BLOOD COUNT 5.39 10^6/uL (4.35-5.55); RED CELL DISTRIBUTION WIDTH 14.4 % (11.5-14.0); WHITE BLOOD COUNT 6.5 10^3/uL (4.0-10.5)
[2017-03-04] MEDS: ENOXAPARIN SODIUM INJ 120 MG/0.8 ML DISP.SYRIN SUBCUT SCH (09:58)
[2017-03-04] MEDS: LISINOPRIL 10 MG TABLET PO SCH (09:59)
[2017-03-04] MEDS: METOPROLOL TARTRATE 25 MG TABLET PO SCH (09:59)
[2017-03-04] MEDS: ASPIRIN 81 MG TABLET, ENT COATED PO SCH (09:59)
[2017-03-04] MEDS: DOCUSATE SODIUM 100 MG CAPSULE PO SCH (09:59)
[2017-03-04] MEDS: ATORVASTATIN CALCIUM 80 MG TABLET PO SCH (09:59)
[2017-03-04] MEDS: NITROGLYCERIN 2.5 MG (0.1 MG/HR) PATCH.TD24 TD SCH (09:59)
--- NOTE | 2017-03-04 10:25 | PDOC TRANSFER SUMMARY ---
General Admission Date/PCP: 03/02/17 07:42 Transfer Date: 03/04/17 Accepting Facility: [facility] Accepting Physician: dr brumfield Resuscitation Status: Full Code - Transfer Diagnosis (1) Chest pain Is this a current diagnosis for this admission?: YesDiagnosis Summary: NSTEMI; transfer to [facility] for interventional cardiology evaluation (2) Elevated troponin I level Is this a current diagnosis for this admission?: YesDiagnosis Summary: as above; he is currently chest pain free and hemodynamically stable (3) Abnormal CT scan, chest Is this a current diagnosis for this admission?: YesDiagnosis Summary: Rt sided spiculated pulmonary nodules, will need further eval and monitoring once his cardiac issues resolved (4) Cocaine abuse Is this a current diagnosis for this admission?: YesDiagnosis Summary: counseled regarding cessation but not interested at this time (5) Uncontrolled hypertension Is this a current diagnosis for this admission?: YesDiagnosis Summary: much better control on current regimen (6) Hyperlipidemia Is this a current diagnosis for this admission?: YesDiagnosis Summary: high dose statin - Transfer Medications Home Medications: Amlodipine Besylate [Norvasc 5 mg Tablet] 5 mg PO DAILY 03/02/17 Lisinopril [Zestril] 20 mg PO BID 03/02/17 Transfer Medications: Current Medications Acetaminophen (Tylenol 325 Mg Tablet) 650 mg PO Q4HP PRN PRN Reason: MILD PAIN OR TEMP > 101 Stop: 04/01/17 07:35 Last Admin: 03/03/17 21:26 Dose: 650 mg Al Hydrox/Mg Hydrox/Simethicone (Maalox Plus Susp 30 Udcup) 30 ml PO Q4HP PRN PRN Reason: indigestion Stop: 04/01/17 07:41 Aspirin (Ecotrin 81 Mg Ec Tablet) 81 mg PO DAILY [facility] Stop: 04/01/17 09:59 Last Admin: 03/04/17 09:59 Dose: 81 mg Atorvastatin Calcium (Lipitor 80 Mg Tablet) 80 mg PO DAILY [facility] Stop: 04/02/17 09:59 Last Admin: 03/04/17 09:59 Dose: 80 mg Dextrose (Dextrose Inj 50% Syringe (25 Gm/50 Ml)) 12.5 gm IV PRN PRN; Protocol PRN Reason: FOR BG 50-69 IN ALERT PATIENT Stop: 04/02/17 17:55 Dextrose (Dextrose Inj 50% Syringe (25 Gm/50 Ml)) 25 gm IV PRN PRN; Protocol PRN Reason: See Label Comments Stop: 04/02/17 17:55 Docusate Sodium (Colace 100 Mg Capsule) 100 mg PO BID [facility] Stop: 04/01/17 09:59 Last Admin: 03/04/17 09:59 Dose: 100 mg Enoxaparin Sodium (Lovenox Inj 120 Mg/0.8 Ml Disp.Syrin) 115 mg SUBCUT Q12 [facility] Stop: 04/02/17 21:59 Last Admin: 03/04/17 09:58 Dose: 115 mg Glucagon (Glucagen Inj 1 Mg Vial) 1 mg SUBCUT PRN PRN; Protocol PRN Reason: Evaluate for BG < 70 Stop: 04/02/17 17:55 Glucose (Glutose 40% Gel 15 Gm Tube) 15 gm PO PRN PRN; Protocol PRN Reason: For BG 50-69 in Alert Patient Stop: 04/02/17 17:55 Glucose (Glutose 40% Gel 15 Gm Tube) 30 gm PO PRN PRN; Protocol PRN Reason: FOR BG < 50 IN ALERT PATIENT Stop: 04/02/17 17:55 Lisinopril (Prinivil 10 Mg Tablet) 20 mg PO Q12 [facility] Stop: 04/01/17 09:59 Last Admin: 03/04/17 09:59 Dose: 20 mg Metoprolol Tartrate (Lopressor Inj/Pf 5 Mg/5 Ml Sdv) 5 mg IV Q6HP PRN PRN Reason: hypertension Stop: 04/01/17 07:47 Metoprolol Tartrate (Lopressor 25 Mg Tablet) 12.5 mg PO Q12 [facility] Stop: 04/02/17 09:59 Last Admin: 03/04/17 09:59 Dose: 12.5 mg Nitroglycerin (Nitro-Dur 2.5 Mg (0.1 Mg/Hr) Transdermal Ptch) 1 each TD DAILY [facility] Stop: 04/02/17 09:59 Last Admin: 03/04/17 09:59 Dose: 1 each Promethazine HCl (Phenergan 25 Mg Tablet) 12.5 mg PO Q6HP PRN PRN Reason: FOR NAUSEA/VOMITING Stop: 04/01/17 07:35 Sodium Chloride (Saline Flush 2.5 Ml Monoject Prefil Syrin) 2.5 ml IV Q8 [facility] Stop: 04/01/17 13:59 Last Admin: 03/04/17 05:21 Dose: 2.5 ml - Allergies Allergies/Adverse Reactions: No Known Allergies Allergy (Verified 03/01/17 17:49) - Diet/Activity Discharge Diet: Cardiac Hospital Course Hospital Course: HAMLET TRIVEDI is a 41 year old -[place] African male with known underlying hypertension, but off all medications for at least a month who presents to the emergency room for evaluation of intermittent combination pressure and sharp left-sided chest pain that began in the morning of the eighth shortly after he awoke. Occasional shortness of breath and occasional diaphoresis. Nothing in particular made the chest pain worse. He has had prior such symptoms. Negative exercise treadmill study one year ago. No history of myocardial infarction, pulmonary embolus, DVT, atrial fibrillation, or atrial flutter. Blood pressure was noted to be quite elevated upon arrival but has responded nicely to treatment given in the emergency room. Prior to running out of medication, he was taking lisinopril 20 mg p.o. twice daily and Norvasc 5 mg daily. Does admit to using cocaine, stating last used 5 days ago." patient was admitted for substernal chest pain that has resolved, no prior hx of CAD and had negative stress test at [place] 2 years ago. He's been incarcerated for the last 2 years where they gave him his BP meds and released just over one month ago with one month supply of meds and instructions to find a new PCP, which he has failed to do and therefore ran out of his meds 5d ago. he also admits to cocaine use, he smokes it. initial evaluation shows non specific repolarization abnl's of T waves but nothing to suggest acute ischemia and his enzymes were equivocal so we set him up for 2d cardiolyte stress test due to his size. After resting images completed his troponins trended up and out of the normal range so dr martinez consulted, part 2 stopped, echo performed which just shows LVH (see his dictation for details). He was placed on full dose lovenox, high dose statin, beta alana since cocaine use is now about 1 week out, topical NTG and continued ASA. Plan was to further trend his enzymes and if down then complete stress portion of the test but of course his repeat this morning went up. He remains chest pain free and the true etiology is not real clear at this point. Dr Martinez, cardiology feels it is in his best interest to transfer to tertiary center for invasive interventional evaluation and has contacted Dr Brumfield in [place] who has accepted him in transfer for further evaluation. He is stable for transport at this time and agreeable to transfer. he expressed no concerns to me and has no questions. Physical Exam Vital Signs: Temp Pulse Resp BP Pulse Ox 98.7 F 76 19 125/75 98 03/04/17 08:19 03/04/17 08:21 03/04/17 08:19 03/04/17 08:21 03/04/17 08:21 Intake & Output 03/03/17 03/04/17 03/05/17 06:59 06:59 06:59 Intake Total 2093 245 Output Total 1725 150 Balance 368 95 Weight 115.3 kg 117.8 kg General appearance: PRESENT: no acute distress, well-developed, well-nourished Head exam: PRESENT: atraumatic, normocephalic Eye exam: PRESENT: EOMI Neck exam: ABSENT: carotid bruit, JVD Respiratory exam: PRESENT: clear to auscultation zane. ABSENT: accessory muscle use Cardiovascular exam: PRESENT: RRR. ABSENT: systolic murmur Pulses: PRESENT: normal radial pulses, normal dorsalis pedis pul Vascular exam: PRESENT: normal capillary refill GI/Abdominal exam: PRESENT: normal bowel sounds, soft. ABSENT: tenderness Extremities exam: PRESENT: clubbing. ABSENT: calf tenderness, pedal edema Musculoskeletal exam: PRESENT: ambulatory, full ROM Neurological exam: PRESENT: alert, awake, oriented to person, oriented to place , oriented to time, oriented to situation Psychiatric exam: PRESENT: flat affect, normal mood Skin exam: PRESENT: dry, warm Results Laboratory Results: 03/04/17 08:37 03/04/17 08:37 WBC 6.5 RBC 5.39 Hgb 15.0 Hct 44.1 MCV 82 MCH 27.9 MCHC 34.1 RDW 14.4 H Plt Count 214 03/02/17 03/03/17 03/03/17 08:59 04:01 06:54 Troponin I 0.049 0.383 0.588 03/03/17 03/03/17 03/04/17 15:55 23:51 08:37 Troponin I 0.280 0.760 0.170 EKG Comments: ecg continues to show diffuse T wave/J point elevation in all leads but no ischemic changes suggested Impressions: Chest X-Ray 03/01/17 17:53 IMPRESSION: NO SIGNIFICANT RADIOGRAPHIC FINDING IN THE CHEST. Chest/Abdomen CTA 03/01/17 23:06 IMPRESSION: 1. NO ABDOMINAL AORTIC ANEURYSM, DISSECTION OR SIGNIFICANT STENOSIS. Moderate hepatic steatosis. Colonic diverticulosis. 2. Abnormal CT of the chest reported separately. Pelvis CTA 03/01/17 23:06 IMPRESSION: 1. NO ABDOMINAL AORTIC ANEURYSM, DISSECTION OR SIGNIFICANT STENOSIS. Moderate hepatic steatosis. Colonic diverticulosis. 2. Abnormal CT of the chest reported separately. Plan Discharge Plan: transfer to [facility] for further investigation and treatment; continue empiric care for presumed NSTEMI Time Spent: Greater than 30 Minutes
--- NOTE | 2017-03-04 10:28 | CONSULTATION REPORT E ---
Consultation Report NAME: HAMLET TRIVEDI : 1975 AGE: 41Y DATE: 03/03/2017 301 A TO: DESMOND UGARTE M.D. FROM: MARTY HOPSON M.D. Requesting Physician HISTORY OF PRESENT ILLNESS: This patient is a 41-year-old, -[place] male with known history of hypertension and history of polysubstance abuse who ran out of his blood pressure medications about a month ago. Since then, the patient has been having episodes of left side of the chest and also sharp pains off and on at rest lasting for about an hour. It is not brought on or worsened by exertion. Occasionally, the patient has diaphoresis and occasionally has shortness of breath. The patient's initial EKG showed some nonspecific inferior lead changes, but no major acute changes. INCOMPLETE DICTATION DICTATING PHYSICIAN: DESMOND UGARTE M.D. [id number] PHY#: [id number] ID: [id number] JOB#: [id number] ACCT: [id number] cc:DESMOND UGARTE M.D. >
--- NOTE | 2017-03-04 10:29 | CONSULTATION REPORT E ---
Consultation Report NAME: HAMLET TRIVEDI : 1975 AGE: 41Y DATE: 03/03/2017 301 A TO: DESMOND UGARTE M.D. FROM: MARTY HOPSON M.D. Requesting Physician REASON FOR CONSULTATION: Atypical chest pain and abdominal pain. Troponin suggestive of non ST-elevation NE. HISTORY: Note that the patient was seen at 11:30 a.m. on 03/03/2017. This patient is a 41-year-old, -[place] male who has a history of hypertension, history of polysubstance abuse who ran out of his blood pressure medications about a month ago. Since then he has been having episodes of left-sided chest pressure. INCOMPLETE DICTATION DICTATING PHYSICIAN: DESMOND UGARTE M.D. [id number] PHY#: [id number] ID: [id number] JOB#: [id number] ACCT: [id number] cc:DESMOND UGARTE M.D. >
--- NOTE | 2017-03-04 12:55 | EKG REPORT ---
SEVERITY:- NORMAL ECG - SINUS RHYTHM : Confirmed by: Timoteo Auguste 04-Mar-2017 12:54:43
[2017-03-04 15:36] VITALS: BP 143/96
--- NOTE | 2017-03-05 17:23 | PROGRESS NOTE E ---
Progress Note NAME: HAMLET TRIVEDI : 1975 AGE: 41Y DATE: 03/04/2017 ROOM: 301 SUBJECTIVE: Note that the patient was supposed to have a stress portion of his Cardiolite stress test today but last night his troponin I jumped up to 0.760 and then subsequently came down to 0.170. The patient has no chest pain or discomfort. There was no arrhythmia seen. There is no PND, orthopnea. There is no leg edema. The patient's EKG is within normal limits. But, in view of the patient's increase and decrease of troponin I, it was deemed that it was not safe to do a stress test here and it is better that the patient be transferred to a tertiary care center where they can either do a stress test or a cardiac catheterization. This has been discussed with the patient and he is agreeable. See below. OBJECTIVE: GENERAL: On examination the patient is mildly obese, in no acute distress. He is well-groomed. VITAL SIGNS: He is afebrile with a temperature of 98.9 degrees Fahrenheit, pulse is 84 beats per minute, blood pressure is 134/89, respirations are 20 per minute, O2 sats are 97% on room air. HEENT: Head is atraumatic, normocephalic. Eyes: Pupils are equal, round, regular, reactive to light and accommodation. External ocular movements are normal. There is no conjunctival pallor. There is no scleral icterus. ENT is negative. NECK: Supple. There is no JVD. Carotids are equal. There is no bruit. There is no lymphadenopathy. There is no goiter. Trachea is central. LUNGS: Clear to auscultation and percussion. There is no chest wall tenderness. HEART: S1 and S2 is heard. There is no S3 gallop. There is no S4 gallop. There is a systolic murmur in the left sternal border and the apex. There is no rub. There is no radiation of the murmur. ABDOMEN: Soft, nontender. There is no hepatosplenomegaly. Bowel sounds are well-heard. There are no tender areas or masses. EXTREMITIES: Femorals are slightly diminished. Leg pulses are well felt. There is no pedal edema. There is no DVT or cellulitis. There is no calf tenderness. There is no cyanosis or clubbing. Capillary refill is normal. CENTRAL NERVOUS SYSTEM: The patient is conscious, awake, alert, oriented x3 with no focal deficits. PSYCHIATRIC: The patient's judgment and insight are intact. His affect is normal. DIAGNOSTIC STUDIES: The patient's EKG showed sinus rhythm, within normal limits. The patient's troponin which had dropped down to 0.280 yesterday evening subsequently last night went up to 0.760 and this morning 0.170. IMPRESSION: 1. NON-ST ELEVATION CO. 2. INCREASED AND DECREASED OF TROPONIN I. 3. ATYPICAL CHEST PAIN. 4. ACCELERATED HYPERTENSION ON ADMISSION, NOW BLOOD PRESSURE WELL-CONTROLLED. 5. LUNG NODULE, NEEDS WORKUP LATER. 6. HISTORY OF COCAINE AND POLYSUBSTANCE ABUSE. 7. HYPERLIPIDEMIA. RECOMMENDATION: Continue the patient on beta alana. Continue full doses of Lovenox and aspirin and statin. In view of the patient's troponin I, discussed with [facility] environmental project manager, . I discussed the case in detail with him and he has accepted the patient. The patient is aware of the risks and benefits of transfer. Discussed with Dr. Dorman, the hospitalist also. The patient will follow up with me [facility], since the patient expresses that desire. Later as an outpatient the patient will need lung workup. TIME SPENT: Note 30 minutes spent on this patient with more than 50% of the time spent on direct patient care. His medications have been reviewed and his medications have been discussed with . In view of the patient's troponin I and the need for possible cardiac catheterization versus stress testing in a tertiary care center involved highly complex medical decision making. The patient will follow up with me in the office. DICTATING PHYSICIAN: DESMOND UGARTE M.D. [id number] PHY#: [id number] ID: [id number] JOB#: [id number] ACCT: [id number] cc: >
--- NOTE | 2017-03-07 18:37 | DRAGON STRESS TEST REPORT ---
Resting Cardiolite Imaging: Date Of Procedure: 03/02/2017. Indication: Non-STEMI. Ordering Physician: Dr. MR Arabella Patino. Distress part was not performed due to the patient's increasing troponin I. Procedure: At rest the patient was given 14.65 mCi of technetium 99m sestamibi intravenously. As per protocol rest gated imaging was performed. Interpretation: There are no resting perfusion defects seen. The LV ejection fraction was read by the computer is 41%. Visually the ejection fraction is greater than 55%. MTDD
== END 2017-03-04 15:45 | disposition short-term general hospital (02) ==
LOC: ER 17:28 → UNDOADMOB 03-02 06:01 → INTOOBSV 03-02 06:01 → EH 03-02 06:01 → 3N 03-02 06:55 → EH 03-02 06:55 → 3N 03-02 07:42
PROVIDERS: ADMIT Family Medicine; ATTEND Family Medicine
DX: I21.4 Non-ST elevation (NSTEMI) myocardial infarction (principal); R74.8 Abnormal levels of other serum enzymes; R91.8 Other nonspecific abnormal finding of lung field; F14.10 Cocaine abuse, uncomplicated; I10 Essential (primary) hypertension; E78.5 Hyperlipidemia, unspecified; Z91.19 Patient's noncompliance with other medical treatment and regimen; R59.0 Localized enlarged lymph nodes; Z82.49 Family history of ischemic heart disease and other diseases of the circulatory system; R51 Headache; F12.90 Cannabis use, unspecified, uncomplicated; K76.0 Fatty (change of) liver, not elsewhere classified; K57.30 Diverticulosis of large intestine without perforation or abscess without bleeding; F41.9 Anxiety disorder, unspecified; F32.9 Major depressive disorder, single episode, unspecified; E66.9 Obesity, unspecified; F17.200 Nicotine dependence, unspecified, uncomplicated; Z71.51 Drug abuse counseling and surveillance of drug abuser; Z87.898 Personal history of other specified conditions; Z68.33 Body mass index [BMI] 33.0-33.9, adult
CPT/HCPCS: 93005 ×4; 99285; 36415 ×4; 85025; 85027; 85610; 85730; 80053; 81001; 84484 ×4; 80307; 80061; 93306; 71020; 78451; 71275; 74175; 72191; 93010 ×4; G0378 ×3; A9500; J1650 ×3; J3490 ×5; Q9969

== ENCOUNTER 2017-03-15 17:38 | Emergency (ER) | payer SELFPAY ==
[2017-03-15 18:41] LABS: ABSOLUTE BASOPHILS # (AUTO) 0.1 10^3/uL (0.0-0.2); ABSOLUTE EOSINOPHILS # (AUTO) 0.1 10^3/uL (0.0-0.6); ABSOLUTE LYMPHOCYTES (AUTO) 1.2 10^3/uL (0.5-4.7); ABSOLUTE MONOCYTES (AUTO) 0.4 10^3/uL (0.1-1.4); BASOPHILS % (AUTO) 0.9 % (0-2); HEMATOCRIT 37.5 % (37.9-51.0); HEMOGLOBIN 12.8 g/dL (13.5-17.0); HGB HCT DIFFERENCE 0.9; LYMPHOCYTES % (AUTO) 13.3 % (13-45); MEAN CORPUSCULAR HEMOGLOBIN 28.1 pg (27.0-33.4); MEAN CORPUSCULAR HGB CONC 34.1 g/dL (32.0-36.0); MEAN CORPUSCULAR VOLUME 82 fl (80-97); RED BLOOD COUNT 4.55 10^6/uL (4.35-5.55); RED CELL DISTRIBUTION WIDTH 13.8 % (11.5-14.0); SEGMENTED NEUTROPHILS % (AUTO) 79.8 % (42-78); WHITE BLOOD COUNT 8.8 10^3/uL (4.0-10.5)
--- NOTE | 2017-03-15 18:47 | RADIOLOGY REPORT (SQ) ---
EXAM DESCRIPTION: CHEST SINGLE VIEW COMPLETED DATE/TIME: 03/15/2017 6:35 pm REASON FOR STUDY: bed 16 palpitations COMPARISON: CT and radiograph from 03/01/2017 EXAM PARAMETERS: NUMBER OF VIEWS: One view. TECHNIQUE: Single frontal radiographic view of the chest acquired. RADIATION DOSE: NA LIMITATIONS: None. FINDINGS: LUNGS AND PLEURA: No opacities, masses or pneumothorax. No pleural effusion. MEDIASTINUM AND HILAR STRUCTURES: No masses. Contour normal. HEART AND VASCULAR STRUCTURES: Heart normal in size. Normal vasculature. BONES: No acute findings. HARDWARE: None in the chest. OTHER: No other significant finding. IMPRESSION: NO ACUTE RADIOGRAPHIC FINDING IN THE CHEST. KNOWN RIGHT-SIDED PULMONARY NODULES ARE NOT VISIBLE BY RADIOGRAPHS. TECHNICAL DOCUMENTATION: JOB ID: [id number]
[2017-03-15] MEDS ORDERED: AMLODIPINE BESYLATE 10 MG TABLET PO ONE (18:55)
[2017-03-15] MEDS ORDERED: NORMAL SALINE 1000 ML 1,000 ML IV PRN (18:55)
--- NOTE | 2017-03-15 18:57 | ER Document Report ---
ED Cardiac - General Chief Complaint: Irregular Pulse Stated Complaint: RAPID HEART RATE Time Seen by Provider: 03/15/17 18:32 Mode of Arrival: Ambulatory Information source: Patient TRAVEL OUTSIDE OF THE [place] IN LAST 30 DAYS: No - HPI Patient complains to provider of: Palpitations Was the onset of pain: Sudden Is the pain a: New problem Quality of pain: None Associated symptoms: None Exacerbated by: Denies Relieved by: Nothing Similar symptoms previously: Yes Recently seen / treated by doctor: Yes Notes: Patient is a 41-year-old male presenting to the emergency room complaining of elevated heart rate that started suddenly while at home, states she was just sitting there resting when it started, denies any chest pain, no shortness of breath, states he ate 1 meal today, admits that he likely did not drink many fluids, his home is warm and does not have proper air conditioning as well, he was recently admitted at this facility on 03/02/2017 for similar symptoms, ended up having some elevated troponins and was transferred to tertiary care center for further evaluation and treatment, states he did not receive a cardiac catheterization, was discharged with prescriptions for several medications including lisinopril, Norvasc and hydrochlorothiazide which he has not filled or taken in several days - Related Data Allergies/Adverse Reactions: No Known Allergies Allergy (Verified 03/01/17 17:49) Past Medical History - General Information source: Patient - Social History Smoking Status: Current Every Day Smoker Family History: Reviewed & Not Pertinent - Past Medical History Cardiac Medical History: Reports: Hx Hypertension Denies: Hx Atrial Fibrillation, Hx Congestive Heart Failure, Hx Coronary Artery Disease, Hx DVT, Hx Heart Attack, Hx Hypercholesterolemia, Hx Pulmonary Embolism Pulmonary Medical History: Denies: Hx Asthma, Hx COPD, Hx Sleep Apnea Neurological Medical History: Denies: Hx Seizures Endocrine Medical History: Denies: Hx Diabetes Mellitus Type 1, Hx Diabetes Mellitus Type 2, Hx Hyperthyroidism, Hx Hypothyroidism Renal/ Medical History: Denies: Hx Peritoneal Dialysis GI Medical History: Denies: Hx Cirrhosis, Hx Gastroesophageal Reflux Disease, Hx Hepatitis Musculoskeltal Medical History: Denies Hx Arthritis Psychiatric Medical History: Reports: Hx Depression Infectious Medical History: Denies: Hx Hepatitis Review of Systems - Review of Systems Constitutional: No symptoms reported EENT: No symptoms reported Cardiovascular: Palpitations Respiratory: No symptoms reported Gastrointestinal: No symptoms reported Genitourinary: No symptoms reported Male Genitourinary: No symptoms reported Musculoskeletal: No symptoms reported Skin: No symptoms reported Hematologic/Lymphatic: No symptoms reported Neurological/Psychological: No symptoms reported -: Yes All other systems reviewed and negative Physical Exam - Vital signs Vitals: Resp Pulse Ox 18 97 03/15/17 17:59 03/15/17 17:59 Interpretation: Normal - General General appearance: Appears well, Alert - HEENT Head: Normocephalic, Atraumatic Eyes: Normal Pupils: PERRL - Respiratory Respiratory status: No respiratory distress Chest status: Nontender Breath sounds: Normal Chest palpation: Normal - Cardiovascular Rhythm: Regular, Tachycardia Heart sounds: Normal auscultation Murmur: No - Abdominal Inspection: Normal Distension: No distension Bowel sounds: Normal Tenderness: Nontender Organomegaly: No organomegaly - Back Back: Normal, Nontender - Extremities General upper extremity: Normal inspection, Nontender, Normal color, Normal ROM , Normal temperature General lower extremity: Normal inspection, Nontender, Normal color, Normal ROM , Normal temperature, Normal weight bearing. No: Stephen's sign - Neurological Neuro grossly intact: Yes Cognition: Normal Orientation: AAOx4 Belkis Coma Scale Eye Opening: Spontaneous Belkis Coma Scale Verbal: Oriented Belkis Coma Scale Motor: Obeys Commands Belkis Coma Scale Total: 15 Speech: Normal Motor strength normal: LUE, RUE, LLE, RLE Sensory: Normal - Psychological Associated symptoms: Normal affect, Normal mood - Skin Skin Temperature: Warm Skin Moisture: Dry Skin Color: Normal Course - Re-evaluation Re-evalutation: 03/15/17 21:03 Patient resting comfortably, reports feeling much better, vital signs are improved including heart rate, he reports that he feels as though his symptoms are all related to the fact that he has been without his medications for the past few days, since his workup here is negative and he denies ever having any chest pain, patient will be discharged with prescriptions for his lisinopril, Norvasc and hydrochlorothiazide, he was advised to follow-up with his primary care provider or return if symptoms worsen, patient acknowledges understanding and agreement with this plan - Vital Signs Vital signs: Temp Pulse Resp BP Pulse Ox 86 10 L 159/106 H 98 03/15/17 21:15 03/15/17 21:30 03/15/17 21:30 03/15/17 21:30 - Laboratory Result Diagrams: 03/15/17 18:30 03/15/17 18:30 Laboratory results interpreted by me: 03/15/17 03/15/17 18:30 18:30 Hgb 12.8 L Hct 37.5 L Seg Neutrophils % 79.8 H Chloride 108 H Glucose 125 H Creatine Kinase 580 H - Diagnostic Test Radiology reviewed: Image reviewed, Reports reviewed - EKG Interpretation by Me EKG shows normal: Sinus rhythm Rate: Tachycardia Discharge - Discharge Clinical Impression: Sinus tachycardia Condition: Stable Disposition: HOME, SELF-CARE Instructions: Sinus Tachycardia ([facility]) Additional Instructions: Follow up with your primary care provider in one to 2 days. Return to the emergency room immediately if symptoms worsen or any additional concerns. Prescriptions: Amlodipine Besylate [Norvasc 10 mg Tablet] 10 mg PO DAILY #30 tablet Hydrochlorothiazide [Hydrodiuril 25 mg Tablet] 25 mg PO QAM #30 tablet Lisinopril 20 mg PO BID #60 tablet
[2017-03-15 19:01] LABS: ALANINE AMINOTRANSFERASE 68 U/L (21-72); ALBUMIN 4.2 g/dL (3.5-5.0); ALKALINE PHOSPHATASE 87 U/L (38-126); ANION GAP 10 (5-19); ASPARTATE AMINO TRANSFERASE 35 U/L (17-59); BILIRUBIN,DIRECT 0.3 mg/dL (0.0-0.4); BILIRUBIN,TOTAL 0.5 mg/dL (0.2-1.3); BLOOD UREA NITROGEN 13 mg/dL (7-20); CARBON DIOXIDE 22 mmol/L (22-30); CHLORIDE 108 mmol/L (98-107); CREATINE KINASE 580 U/L (55-170); CREATININE RESULT 0.93 mg/dL (0.52-1.25); GLUCOSE 125 mg/dL (75-110); POTASSIUM 4.3 mmol/L (3.6-5.0); SODIUM 140.1 mmol/L (137-145)
[2017-03-15 19:13] LABS: CREATINE KINASE MB 1.61 ng/mL (<4.55)
[2017-03-15 19:14] LABS: TROPONIN I < 0.012 ng/mL
--- NOTE | 2017-03-15 21:05 | EKG REPORT ---
SEVERITY:- OTHERWISE NORMAL ECG - SINUS TACHYCARDIA : Confirmed by: Timoteo Auguste 15-Mar-2017 21:04:43
[2017-03-15 21:57] VITALS: BP 159/106
== END 2017-03-15 21:57 | disposition home or self-care (01) ==
LOC: ER 17:38
DX: R00.0 Tachycardia, unspecified (principal); I10 Essential (primary) hypertension; T46.4X6A Underdosing of angiotensin-converting-enzyme inhibitors, initial encounter; T46.1X6A Underdosing of calcium-channel blockers, initial encounter; T50.2X6A Underdosing of carbonic-anhydrase inhibitors, benzothiadiazides and other diuretics, initial encounter; Z91.128 Patient's intentional underdosing of medication regimen for other reason; Z91.14 Patient's other noncompliance with medication regimen; F17.200 Nicotine dependence, unspecified, uncomplicated
CPT/HCPCS: 93005; 99285; 96360; 36415; 82553; 82550; 85025; 80053; 84484; 71010; 93010; J7030